=== PATIENT | female | born 1935 | race Caucasian/White ===

== ENCOUNTER 2017-04-30 08:26 | Day surgery (SDC) | payer MEDICARE, BC ==
[~2017-04-30 08:26] MED LIST: Lactated Ringers 1,000 ML IV SCH; Lidocaine 1%/Sod Bicarbonate in NS 8.4% 1 ML Syringe PRN; Sodium Chloride 0.9% 10 ML Syringe FLUSH PRN
[2017-04-30] MEDS ORDERED: Bupivacaine 0.25% 30 ML SDV ONE (08:49)
[2017-04-30] MEDS ORDERED: Lidocaine 1% 30 ML SDV ONE (09:05)
[2017-04-30 10:56] VITALS: BP 170/87
--- NOTE | 2017-05-07 07:12 | PCM.OPNOTE ---
- General Post-Op/Procedure Note Date of Surgery/Procedure: 04/30/17 Operative Procedure(s): right carpal tunnel release Pre Op Diagnosis: right median nerve compression neuropathy Post-Op Diagnosis: Same Anesthesia Technique: Local Primary Surgeon: Prakash Santos Project/Production Manager Imaging: Kamila Marie in mLs: 0 Complications: None Condition: Good
--- NOTE | 2017-05-07 07:47 | OR ---
DATE OF OPERATION: 04/30/2017 SURGEON: Prakash Santos MD OPERATION PERFORMED: Right carpal tunnel release. PREOPERATIVE DIAGNOSIS: Right median nerve compression neuropathy. POSTOPERATIVE DIAGNOSIS: Right median nerve compression neuropathy. ANESTHESIA: Local only. ANESTHESIA PROVIDER: None. ROPE MAKER: Kamila Marie LPN ESTIMATED BLOOD LOSS: 0 mL. COMPLICATIONS: None. CONDITION: Stable. DESCRIPTION OF PROCEDURE: The patient was identified in the preop holding area. Proper site was marked and identified by the surgeon. The patient was taken back to the operating theater where after adequate anesthesia, the patient's right upper extremity was sterilely prepped and draped in the usual sterile fashion. OR time-out was performed. The patient did not receive any antibiotics as it is not indicated for soft tissue hand procedure. At this time, right upper extremity was exsanguinated with an Esmarch and the Esmarch was left on the forearm as a tourniquet. A 1% lidocaine without epinephrine and 0.25% Marcaine without epinephrine was then used to anesthetize palmar cutaneous branch of the median nerve, roughly 10 cm proximal to the proximal wrist crease. Next, incisional site was anesthetized as well with local using Wilkins cardinal line and ulnar border of the 4th digit as reference. Once this had set up, incision was made. This was taken down to the palmar cutaneous fascia. Palmar cutaneous fascia was incised with a [place] blade. Transverse carpal ligament was identified. A small rent was made in the transverse carpal ligament with [place] blade. Sabael elevator was then placed distally underneath the transverse carpal ligament and it was resected all the way to the level stopping short of the palmar arch. At this time, it was found to be adequately released distally. Attention was turned proximally with use of a tenotomy scissors. The superficial forearm fascia as well as transverse carpal ligament were resected proximally keeping the tips ulnar to protect the palmar cutaneous branch of the median nerve. At this time, it was found to be adequately released. Adequate saline was irrigated through the wound. A 4-0 nylon simple suture was used for closure of the skin. Sterile soft dressing was applied. The patient tolerated the procedure well and was sent to PACU in stable condition. MMODAL /[id number]
== END 2017-04-30 10:50 | disposition home or self-care (01) ==
LOC: JD.SDS 08:26
PROVIDERS: ATTEND Orthopaedic Surgery
DX: G56.01 Carpal tunnel syndrome, right upper limb (principal); Z90.49 Acquired absence of other specified parts of digestive tract; Z98.890 Other specified postprocedural states; Z79.899 Other long term (current) drug therapy
CPT/HCPCS: 64721; 87641; J3490

== ENCOUNTER 2017-06-25 08:29 | Day surgery (SDC) | payer MEDICARE, BC ==
[2017-06-25] MEDS ORDERED: Lidocaine 1% 30 ML SDV ONE (10:24)
[2017-06-25] MEDS ORDERED: Bupivacaine 0.25% 30 ML SDV ONE (10:25)
[2017-06-25 13:05] VITALS: BP 139/73
--- NOTE | 2017-06-30 07:19 | PCM.OPNOTE ---
- General Post-Op/Procedure Note Date of Surgery/Procedure: 06/25/17 Operative Procedure(s): left hand carpal tunnel release Pre Op Diagnosis: left median nerve compression neuropathy Post-Op Diagnosis: Same Anesthesia Technique: Local Primary Surgeon: Prakash Santos Core Cleaner: Mary Villar in mLs: 5 Complications: None Condition: Good
--- NOTE | 2017-06-30 08:06 | OR ---
DATE OF OPERATION: 06/25/2017 SURGEON: Prakash Santos MD OPERATION PERFORMED: Left hand carpal tunnel release. PREOPERATIVE DIAGNOSIS: Left median nerve compression neuropathy. POSTOPERATIVE DIAGNOSIS: Left median nerve compression neuropathy. ANESTHESIA: Local only. DISPLAY DEPARTMENT MANAGER: Mary Villar PA-C. ESTIMATED BLOOD LOSS: Less than 5 mL. COMPLICATIONS: None. CONDITION: Stable. DESCRIPTION OF PROCEDURE: The patient was identified in the preoperative holding area. Proper site was marked and identified by the surgeon. The patient was taken back to the operative theater where the patient's left upper extremity was then sterilely prepped and draped in the usual sterile fashion. OR time-out was performed. The patient did not receive antibiotics, not indicated for soft tissue hand procedure. At this time, the left upper extremity had an Esmarch used as a tourniquet on the forearm. A 1% lidocaine without epinephrine and 0.25% Marcaine without epinephrine were then used to anesthetize the palmar cutaneous branch of the median nerve, roughly 10 cm proximal to the proximal wrist crease as well as the incisional site using Wilkins cardinal line and ulnar border of the fourth digit as reference. Once there was adequate anesthetization, incision was made. This was taken down to the palmar cutaneous fascia. Palmar cutaneous fascia was incised with a [place] blade. Transverse carpal ligament was identified. A small rent was made in the transverse carpal ligament. [place] elevator was placed deep to the transverse carpal ligament and then the [place] blade was used for release of the transverse carpal ligament all the way distally. At this time, it was found to be adequate release all the way distally. Attention was turned proximally, a tenotomy scissors was used for release for the superficial forearm fascia as well as the transverse carpal ligament, making sure to keep the tips of ulnar to protect the palmar cutaneous branch of the median nerve. At this time, it was found to be adequate release both proximally and distally, 4-0 nylon simple suture was used for closure of the skin. The patient tolerated the procedure well and was sent to PACU in stable condition. Note: Assist was needed in this case secondary to extra hands for holding the patient and retraction throughout the case as well as closure. MMODAL [facility][id number] [facility]
== END 2017-06-25 12:05 | disposition home or self-care (01) ==
LOC: JD.SDS 08:29
PROVIDERS: ATTEND Orthopaedic Surgery
DX: G56.02 Carpal tunnel syndrome, left upper limb (principal); I10 Essential (primary) hypertension; Z90.49 Acquired absence of other specified parts of digestive tract; Z79.899 Other long term (current) drug therapy; Z98.890 Other specified postprocedural states; Z72.0 Tobacco use
CPT/HCPCS: 64721; 87641; J3490

== ENCOUNTER 2018-11-01 19:22 | Emergency (ER) | payer MEDICARE, BC ==
[2018-11-01] MEDS ORDERED: cloNIDine 0.1 MG Tab PO ONE (20:04)
[2018-11-01 21:33] VITALS: BP 119/67
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
== END 2018-11-02 10:30 | disposition home or self-care (01) ==
LOC: JD.ED 19:22
DX: I10 Essential (primary) hypertension (principal); Z98.890 Other specified postprocedural states; Z98.51 Tubal ligation status; Z90.49 Acquired absence of other specified parts of digestive tract
CPT/HCPCS: 36415; 80053; 84484; 85025; 93005; 99283; A9270; 93010

== ENCOUNTER 2023-12-02 19:48 | Emergency (ER) | payer MEDICARE, BC ==
[2023-12-02] MEDS ORDERED: HYDROmorphone 0.5 MG/0.5 ML Syringe IVPUSH ONE (20:11)
[2023-12-02 20:34] LABS: BASOPHILS ABSOLUTE AUTO 0.1 K/mm3 (0.0-0.2); BASOPHILS PERCENT AUTO 0.7 % (0.0-1.0); EOSINOPHILS PERCENT AUTO 0.1 % (0.0-6.0); HEMATOCRIT 39.1 % (37.0-47.0); HEMOGLOBIN 12.9 gm/dl (12.0-16.0); IMMATURE GRAN ABSOLUTE AUTO 0.02 K/mm3 (0.00-0.05); IMMATURE GRAN PERCENT AUTO 0.3 % (0.0-0.4); LYMPHOCYTES ABSOLUTE AUTO 0.6 K/mm3 (1.0-4.8); LYMPHOCYTES PERCENT AUTO 9.4 % (24.0-44.0); MEAN CORPUSCULAR HEMOGLOBIN 28.4 pg (28.0-32.0); MEAN CORPUSCULAR VOLUME 85.9 fl (83.0-99.0); MEAN PLATELET VOLUME 11.6 fl (9.4-12.3); MONOCYTES ABSOLUTE AUTO 0.2 K/mm3 (0.0-0.8); MONOCYTES PERCENT AUTO 2.2 % (0.0-8.0); NEUTROPHILS PERCENT AUTO 87.3 % (41.0-71.0); PLATELET COUNT,PLT 208 K/mm3 (150-400); RED BLOOD CELL COUNT 4.55 M/mm3 (4.10-5.30); WHITE BLOOD CELL COUNT,WBC 6.84 K/mm3 (3.9-11.3)
[2023-12-02] MEDS: Sodium Chloride 0.9% 1,000 ML IV STA (20:43)
[2023-12-02] MEDS: Ondansetron 4 MG/2 ML SDV IVPUSH ONE (20:44)
[2023-12-02] MEDS: Sodium Chloride 0.9% 10 ML Syringe FLUSH PRN (20:45)
[2023-12-02 20:56] LABS: A/G RATIO 1.2 (1-2); ALBUMIN 3.6 g/dl (3.4-5.0); BILIRUBIN TOTAL 0.5 mg/dL (0.2-1.0); CALCIUM 9.1 mg/dL (8.5-10.1); EST CRCL DRUG DOSING (CG) 30.16 mL/min; PROTEIN TOTAL,TP 6.7 g/dl (6.4-8.2)
[2023-12-02] MEDS: Sodium Chloride 0.9% 10 ML Syringe FLUSH ONE (21:10)
[2023-12-02] MEDS: Iopamidol 612 MG/ML 100 ML Bottle IVPUSH ONE (21:10)
[2023-12-02 22:24] LABS: APPEARANCE,URINE CLEAR (Clear); BILIRUBIN,URINE NEGATIVE (Negative); COLOR,URINE YELLOW (Yellow); GLUCOSE,URINE NEGATIVE (Negative); KETONES,URINE TRACE (Negative); LEUKOCYTE ESTERASE,URINE NEGATIVE (Negative); NITRITE,URINE NEGATIVE (Negative); OCCULT BLOOD,URINE TRACE-INTACT (Negative); PH,URINE 7.5 (5.0-8.0); PROTEIN,URINE NEGATIVE (Negative); UROBILINOGEN,URINE 0.2 (0.2-1.0)
[2023-12-02] MEDS ORDERED: Lactated Ringers 1,000 ML IV SCH (22:30)
[2023-12-02 22:35] LABS: BACTERIA,URINE FEW /hpf (FEW); MUCUS,URINE FEW /hpf (FEW); RBC,URINE 0-5 /hpf (0-5); SQUAMOUS EPITHELIAL CELLS,UR 0-5 /hpf (0-5); WBC,URINE 0-5 /hpf (0-5)
[2023-12-02] MEDS: Potassium Chloride 10 MEQ in Premix Bag 1 BAG IV SCH (22:58)
[2023-12-02] MEDS: Sodium Chloride 0.9% 1,000 ML IV SCH (22:59)
[2023-12-02] MEDS: Benzocaine 20% Topical Spray UD MUCMEM ONE (23:15)
[2023-12-02] MEDS: Sodium Chloride 0.9% 1,000 ML ONE (23:43)
[2023-12-03 01:10] VITALS: BP 136/85; PULSE 93
== END 2023-12-03 00:15 ==
LOC: JD.ED 19:48
DX: K56.2 Volvulus (principal); E87.6 Hypokalemia; R74.8 Abnormal levels of other serum enzymes; I10 Essential (primary) hypertension; Z79.899 Other long term (current) drug therapy; Z86.16 Personal history of COVID-19
CPT/HCPCS: 36415; 43752; 71045; 74177; 76705; 80053; 81001; 83605; 83690; 85025; 96361; 96365; 96375; 99285; A9270; C1758; J2405; J3480; J3490; J7030; Q9967

== ENCOUNTER 2023-12-19 15:29 | Emergency (ER) | payer MEDICARE, BC ==
[2023-12-19 16:17] LABS: BASOPHILS ABSOLUTE AUTO 0.1 K/mm3 (0.0-0.2); BASOPHILS PERCENT AUTO 1.1 % (0.0-1.0); EOSINOPHILS ABSOLUTE AUTO 0.2 K/mm3 (0.0-0.4); EOSINOPHILS PERCENT AUTO 3.1 % (0.0-6.0); HEMOGLOBIN 12.3 gm/dl (12.0-16.0); IMMATURE GRAN ABSOLUTE AUTO 0.02 K/mm3 (0.00-0.05); IMMATURE GRAN PERCENT AUTO 0.3 % (0.0-0.4); LYMPHOCYTES ABSOLUTE AUTO 1.2 K/mm3 (1.0-4.8); LYMPHOCYTES PERCENT AUTO 17.2 % (24.0-44.0); MEAN CORPUSCULAR HEMOGLOBIN 29.4 pg (28.0-32.0); MEAN CORPUSCULAR HGB CONC 32.4 g/dl (32.0-36.0); MEAN CORPUSCULAR VOLUME 90.9 fl (83.0-99.0); MEAN PLATELET VOLUME 10.9 fl (9.4-12.3); MONOCYTES ABSOLUTE AUTO 0.4 K/mm3 (0.0-0.8); MONOCYTES PERCENT AUTO 5.4 % (0.0-8.0); NEUTROPHILS ABSOLUTE AUTO 5.1 K/mm3 (1.8-7.7); NEUTROPHILS PERCENT AUTO 72.9 % (41.0-71.0); PLATELET COUNT,PLT 380 K/mm3 (150-400); RED BLOOD CELL COUNT 4.18 M/mm3 (4.10-5.30); WHITE BLOOD CELL COUNT,WBC 7.03 K/mm3 (3.9-11.3)
[2023-12-19] MEDS: Sodium Chloride 0.9% 1,000 ML IV SCH (16:23)
[2023-12-19 16:27] LABS: ALBUMIN 3.6 g/dl (3.4-5.0); ANION GAP 11.5 (5-15); BILIRUBIN TOTAL 0.5 mg/dL (0.2-1.0); CALCIUM 9.4 mg/dL (8.5-10.1); EST CRCL DRUG DOSING (CG) 30.16 mL/min; POTASSIUM,K 3.5 mEq/L (3.5-5.1); PROTEIN TOTAL,TP 7.1 g/dl (6.4-8.2)
[2023-12-19] MEDS: Sodium Chloride 0.9% 10 ML Syringe FLUSH PRN (16:30)
[2023-12-19] MEDS: Sodium Chloride 0.9% 10 ML Syringe FLUSH ONE (17:15)
[2023-12-19] MEDS: Iopamidol 612 MG/ML 100 ML Bottle IVPUSH ONE (17:15)
[2023-12-19 18:04] LABS: APPEARANCE,URINE CLEAR (Clear); BILIRUBIN,URINE NEGATIVE (Negative); COLOR,URINE YELLOW (Yellow); GLUCOSE,URINE NEGATIVE (Negative); KETONES,URINE TRACE (Negative); LEUKOCYTE ESTERASE,URINE 1+ (Negative); NITRITE,URINE NEGATIVE (Negative); OCCULT BLOOD,URINE NEGATIVE (Negative); PH,URINE 8.5 (5.0-8.0); PROTEIN,URINE NEGATIVE (Negative); UROBILINOGEN,URINE 0.2 (0.2-1.0)
[2023-12-19 18:36] VITALS: BP 162/81; PULSE 77
[2023-12-19] MEDS: Sulfamethoxazole/Trimethoprim 800-160 MG Tab PO ONE (18:43)
[2023-12-19 18:59] LABS: SQUAMOUS EPITHELIAL CELLS,UR 0-5 /hpf (0-5)
[2023-12-19 19:00] LABS: BACTERIA,URINE FEW /hpf (FEW); MUCUS,URINE NOT SEEN /hpf (FEW)
== END 2023-12-19 18:48 | disposition home or self-care (01) ==
LOC: JD.ED 15:29
DX: N39.0 Urinary tract infection, site not specified (principal); I10 Essential (primary) hypertension; Z86.16 Personal history of COVID-19; Z79.899 Other long term (current) drug therapy
CPT/HCPCS: 36415; 74177; 80053; 81001; 81003; 83690; 85025; 87086; 96360; 96361; 99284; A9270; J3490; J7030; Q9967

== ENCOUNTER 2023-12-20 14:53 | Observation (INO) | payer MEDICARE, BC ==
[2023-12-20 15:34] LABS: BASOPHILS ABSOLUTE AUTO 0.1 K/mm3 (0.0-0.2); BASOPHILS PERCENT AUTO 0.9 % (0.0-1.0); EOSINOPHILS ABSOLUTE AUTO 0.1 K/mm3 (0.0-0.4); EOSINOPHILS PERCENT AUTO 0.9 % (0.0-6.0); HEMATOCRIT 39.5 % (37.0-47.0); HEMOGLOBIN 12.8 gm/dl (12.0-16.0); IMMATURE GRAN ABSOLUTE AUTO 0.02 K/mm3 (0.00-0.05); IMMATURE GRAN PERCENT AUTO 0.3 % (0.0-0.4); LYMPHOCYTES ABSOLUTE AUTO 0.8 K/mm3 (1.0-4.8); LYMPHOCYTES PERCENT AUTO 9.8 % (24.0-44.0); MEAN CORPUSCULAR HEMOGLOBIN 29.3 pg (28.0-32.0); MEAN CORPUSCULAR HGB CONC 32.4 g/dl (32.0-36.0); MEAN CORPUSCULAR VOLUME 90.4 fl (83.0-99.0); MEAN PLATELET VOLUME 10.7 fl (9.4-12.3); MONOCYTES ABSOLUTE AUTO 0.4 K/mm3 (0.0-0.8); MONOCYTES PERCENT AUTO 4.9 % (0.0-8.0); NEUTROPHILS ABSOLUTE AUTO 6.5 K/mm3 (1.8-7.7); NEUTROPHILS PERCENT AUTO 83.2 % (41.0-71.0); PLATELET COUNT,PLT 348 K/mm3 (150-400); RED BLOOD CELL COUNT 4.37 M/mm3 (4.10-5.30); WHITE BLOOD CELL COUNT,WBC 7.78 K/mm3 (3.9-11.3)
[2023-12-20] MEDS: Sodium Chloride 0.9% 10 ML Syringe FLUSH ONE (15:45)
[2023-12-20] MEDS: Sodium Chloride 0.9% 1,000 ML IV STA (15:47)
[2023-12-20 15:58] LABS: A/G RATIO 1.1 (1-2); ALBUMIN 3.6 g/dl (3.4-5.0); ANION GAP 11.2 (5-15); BILIRUBIN TOTAL 0.5 mg/dL (0.2-1.0); BUN/CREATININE RATIO 15.8 (14-18); C-REACTIVE PROTEIN 0.2 mg/dL (<0.30); CALCIUM 9.5 mg/dL (8.5-10.1); CREATININE 1.2 mg/dL (0.55-1.02); EST CRCL DRUG DOSING (CG) 26.29 mL/min; POTASSIUM,K 3.2 mEq/L (3.5-5.1)
[2023-12-20] MEDS: Sodium Chloride 0.9% 10 ML Syringe FLUSH PRN (16:11)
[2023-12-20] MEDS: Iopamidol 612 MG/ML 100 ML Bottle IVPUSH ONE (16:11)
[2023-12-20] MEDS: Ondansetron 4 MG/2 ML SDV IVPUSH ONE (19:17)
[2023-12-20] MEDS: Diatrizoate Meglumine/Diatrizoate Sodium 37% 120 ML Bottle PO ONE ×2 (19:52→20:57)
[2023-12-20] MEDS: Lidocaine 1% 10 ML MDV INJECT ONE (22:57)
[2023-12-20] MEDS: Sulfamethoxazole/Trimethoprim 800-160 MG Tab PO ONE (23:31)
[2023-12-21 00:59] LABS: APPEARANCE,URINE CLEAR (Clear); BILIRUBIN,URINE NEGATIVE (Negative); COLOR,URINE LIGHT YELLOW (Yellow); GLUCOSE,URINE NEGATIVE (Negative); KETONES,URINE NEGATIVE (Negative); LEUKOCYTE ESTERASE,URINE 2+ (Negative); NITRITE,URINE NEGATIVE (Negative); OCCULT BLOOD,URINE NEGATIVE (Negative); PH,URINE 7.5 (5.0-8.0); PROTEIN,URINE NEGATIVE (Negative); UROBILINOGEN,URINE 0.2 (0.2-1.0)
[2023-12-21 01:09] LABS: RBC,URINE 0-5 /hpf (0-5); SQUAMOUS EPITHELIAL CELLS,UR 0-5 /hpf (0-5)
[2023-12-21 01:10] LABS: AMORPHOUS SEDIMENT,URINE MODERATE /hpf (NOT SEEN); BACTERIA,URINE FEW /hpf (FEW); MUCUS,URINE NOT SEEN /hpf (FEW)
[2023-12-21] MEDS: amLODIPine 5 MG Tab **PTOM PO SCH (08:08)
[2023-12-21] MEDS: Pantoprazole 40 MG Tab.CR **PTOM PO SCH (08:08)
[2023-12-21 08:09] VITALS: BP 110/57
[2023-12-21] MEDS: Docusate Sodium 100 MG Cap PO SCH (08:09)
[2023-12-21] MEDS: Polyethylene Glycol 3350 Powder 17 GM Packet PO SCH (08:09)
[2023-12-21 10:02] VITALS: PULSE 89
== END 2023-12-21 14:34 | disposition home health service (06) ==
LOC: JD.ED 14:53 → JD.MS 22:58
PROVIDERS: ADMIT Internal Medicine; ATTEND Internal Medicine
DX: K56.609 Unspecified intestinal obstruction, unspecified as to partial versus complete obstruction (principal); R53.1 Weakness; K31.89 Other diseases of stomach and duodenum; I10 Essential (primary) hypertension; Z79.899 Other long term (current) drug therapy; Z43.1 Encounter for attention to gastrostomy; Z98.890 Other specified postprocedural states
CPT/HCPCS: 36415; 74018; 74176; 74177; 80053; 81001; 81003; 83690; 85025; 86140; 87086; 87641; A9270; G0378; J3490; J7030; Q9963; Q9967; 99284